=== PATIENT | male | born 1960 | race Caucasian/White ===

== ENCOUNTER 2018-01-22 16:27 | Emergency (ER) | payer OTHER ==
[~2018-01-22] VITALS: Ht 182.9 cm; Wt 97.7 kg
[2018-01-22 16:38] VITALS: BP 136/87; PULSE 87; TEMP 98.1
[2018-01-22] MEDS ORDERED: TENORMIN 2525 MG/TAB (17:11)
[2018-01-22] MEDS ORDERED: COZAAR 50MG50 MG/TAB (17:12)
[2018-01-22] MEDS ORDERED: TRULICITY1.5 MG/0.5 SQ (17:12)
[2018-01-22] MEDS ORDERED: GLUCOPHAGE1000 MG PO (17:12)
[2018-01-22] MEDS ORDERED: ASPIRIN 81M81 MG/TA2 PO (17:12)
[2018-01-22] MEDS ORDERED: CANA100T PO (17:12)
== END 2018-01-22 18:47 | disposition home or self-care (01) ==
LOC: COL.ER 16:27
DX: S82.831A Other fracture of upper and lower end of right fibula, initial encounter for closed fracture (principal); S82.201A Unspecified fracture of shaft of right tibia, initial encounter for closed fracture; M25.561 Pain in right knee; M79.89 Other specified soft tissue disorders; I10 Essential (primary) hypertension; E11.9 Type 2 diabetes mellitus without complications; Z79.82 Long term (current) use of aspirin; Z79.84 Long term (current) use of oral hypoglycemic drugs; W11.XXXA Fall on and from ladder, initial encounter